=== PATIENT | female | born 1995 | race Caucasian/White ===

== ENCOUNTER 2016-06-29 11:47 | Emergency (ER) | payer BC ==
[~2016-06-29] VITALS: Ht 152.4 cm; Wt 59.9 kg
[~2016-06-29 11:47] MED LIST: ABIL1TAB7 PO; ACET-654 PO; ARIP5TA PO; BACL5TA PO; BENA25CA2 PO; CYMB1CAP4 PO; DIPH50CA PO; DULO1CAP2 PO; DULO1CAP3 PO; DULO30CA PO; FOLI1TAB2 PO; IBUP-1114 PO; MAG400TA PO; METH-107 PO; MOTR200T44 PO; TIZA4CAP3 PO; TRAM50TA2 PO; TRAZ50TA4 PO; TRAZO50TA PO; TYLE167L PO; TYLE325T5 PO; birth control PO
[2016-06-29] MEDS ORDERED: PROZ20CA11 PO (11:58)
[2016-06-29] MEDS ORDERED: ACETAMINOPHEN TAB 650MG DOSE (2X325MG) PO ONE (12:15)
[2016-06-29 12:57] LABS: BASO % 0.6 % (0.0-1.0); EOS # 0.3 K/mm3 (0.0-0.50); EOS % 3.9 % (0.0-3.0); LARGE UNSTAINED CELL # 0.2 K/mm3 (0.0-0.4); LARGE UNSTAINED CELL % 2.6 % (0.0-4.0); LYMPH # 2.7 K/mm3 (1.5-6.5); LYMPH % 30.3 % (24.0-44.0); MEAN CORPUSCULAR HEMOGLOBIN 31.1 pg (27.0-33.0); MONO # 0.4 K/mm3 (0.0-0.8); MONO % 4.7 % (0.0-5.0); NEUTROPHILS # 4.8 K/mm3 (1.8-7.7); NEUTROPHILS % 57.9 % (36.0-66.0); PLATELET COUNT, AUTOMATED 202 k/mm3 (150-450); RED CELL DISTRIBUTION WIDTH 12.9 % (11.5-14.5); WHITE BLOOD COUNT 8.3 K/mm3 (4.0-10.0)
[2016-06-29 13:26] VITALS: BP 123/84
--- NOTE | 2016-06-29 14:06 | REP ---
FIRST TRIMESTER ULTRASOUND: Real-time sonographic evaluation of the pelvis performed utilizing transabdominal and endovaginal technique. The uterus measures 8.7 x 3.8 x 5.4 cm. The endometrial thickness is 11 mm. Tiny area of fluid in the endometrial canal measures 3 x 2 x 5 mm with a mean diameter of 3 mm which would correspond to an estimated gestational age of 5 weeks if this does represent a tiny gestational sac. Right ovary measures 3.9 x 2.1 x 2.5 cm and the left ovary 3.1 x 1.7 x 2.4 cm. There is no adnexal mass or free fluid. There is no evidence of ovarian torsion with blood flow seen in each ovary with duplex Doppler evaluation. Cystic structure of the right ovary may represent a corpus luteum 1.4 cm in diameter. ? IMPRESSION: Tiny area of fluid in the endometrial canal 3 mm in diameter possibly representing a tiny gestational sac. However, differential diagnosis also includes missed or ectopic . Suggest correlation with serial quantitative beta hCG values. There is no evidence of adnexal mass or free fluid and no evidence of ovarian torsion. Signed by Isak Gaspar MD 06/29/2016 04:47 P
== END 2016-06-29 13:28 | disposition home or self-care (01) ==
LOC: M ED 12:16
DX: N93.9 Abnormal uterine and vaginal bleeding, unspecified (principal); Z88.8 Allergy status to other drugs, medicaments and biological substances; Z88.0 Allergy status to penicillin; Z79.899 Other long term (current) drug therapy; G43.909 Migraine, unspecified, not intractable, without status migrainosus; J45.909 Unspecified asthma, uncomplicated; Z87.442 Personal history of urinary calculi; F41.9 Anxiety disorder, unspecified; F32.9 Major depressive disorder, single episode, unspecified

== ENCOUNTER 2016-10-13 19:48 | Emergency (ER) | payer BC, SELFPAY ==
[~2016-10-13] VITALS: Ht 152.4 cm; Wt 59.0 kg
[2016-10-13 19:48] VITALS: BP 141/83
[~2016-10-13 19:48] MED LIST changes: -ABIL1TAB7 PO; +ABIL20TA5 PO; -ACET-654 PO; +ACET1TAB17 PO; -FOLI1TAB2 PO; +FOLI1TAB4 PO; -METH-107 PO; +METH1TAB40 PO; +PROZ20CA11 PO; +TRAZ50TA11 PO; -TRAZ50TA4 PO
[2016-10-13] MEDS ORDERED: GEOD20CA14 PO (20:04)
[2016-10-13] MEDS ORDERED: ACETAMINOPHEN 325 MG TAB PO ONE (21:00)
== END 2016-10-13 21:42 | disposition home or self-care (01) ==
LOC: M ED 19:48
DX: R51 Headache (principal); G93.5 Compression of brain; J45.909 Unspecified asthma, uncomplicated; F17.210 Nicotine dependence, cigarettes, uncomplicated; Z87.442 Personal history of urinary calculi

== ENCOUNTER → 2020-12-15 | Outpatient (CLI) | payer OTHER ==
[~2020-12-15] MED LIST changes: -ACET1TAB17 PO; +ACET1TAB55 PO; +ARIP1TAB6 PO; -ARIP5TA PO; +BACL-60 PO; -BACL5TA PO; -DULO1CAP2 PO; -DULO1CAP3 PO; +DULO1CAP5 PO; +DULO1CAP6 PO; -DULO30CA PO; +DULO30CA9 PO; +FOLI1TAB11 PO; -FOLI1TAB4 PO; +GEOD20CA14 PO; -MAG400TA PO; +MAGN400T35 PO; +METH-1164 PO; -METH1TAB40 PO; +TIZA4CAP PO; -TIZA4CAP3 PO; +TRAZ-252 PO; +TRAZ1TAB10 PO; -TRAZ50TA11 PO; -TRAZO50TA PO
--- NOTE | 2020-12-15 17:20 | REP ---
INDICATION: INVERTED NIPPLE RT BREAST PAIN AND NIPPLE DISCHARGE. COMPARISON: None TECHNIQUE: Real-time sonographic evaluation of right breast performed. FINDINGS: Right retroareolar ultrasound performed. No cystic or solid nodule is seen. IMPRESSION: BIRADS/ACR category 1, negative ultrasound right breast with special attention paid to the retroareolar region given the history of pain and nipple discharge. RECOMMENDATION: Recommend clinical correlation and follow-up. If there is continued clinical concern based on history and exam, and family history, consider consultation with breast surgeon. Further evaluation of nipple discharge may be made with dedicated breast MRI. <Electronically signed by Isak Gaspar > 12/15/20 [id number]
== END ==
LOC: M RAD 14:59
PROVIDERS: ATTEND Physician Assistant Medical
DX: N64.4 Mastodynia (principal); N64.52 Nipple discharge; N64.53 Retraction of nipple